=== PATIENT | female | born 1995 | race Caucasian/White ===

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

== ENCOUNTER 2017-02-28 13:26 | Emergency (ER) | payer MEDICAID ==
[2017-02-28 13:59] LABS: BASOPHILS 0.3 % (0-2); EOSINOPHILS 1.4 % (0-7); HEMATOCRIT 34.6 % (36.0-48.0); HEMOGLOBIN 12.5 g/dL (12-16); IMMATURE GRANULOCYTES 0.6 % (0-5); LYMPHOCYTES 21.8 % (15-50); MCH 33.8 pg (26.0-34.0); MCHC 36.1 g/dL (31.0-37.0); MCV 93.5 fL (80.0-100.0); MEAN PLATELET VOLUME 10.2 fL (7.4-10.4); MONOCYTES 8.5 % (2-11); NEUTROPHILS 67.4 % (40-80); PLATELET COUNT 162 10x3/uL (130-400); RDW 12.5 % (11.5-14.5); WBC 10.3 10x3/uL (4.8-10.8)
[2017-06-02 05:30] VITALS: BMI 25.0
== END 2017-02-28 15:25 | disposition home or self-care (01) ==
LOC: D.ER 13:26
PROVIDERS: Emergency Medicine
DX: K92.0 Hematemesis (principal); K21.9 Gastro-esophageal reflux disease without esophagitis; F17.200 Nicotine dependence, unspecified, uncomplicated

== ENCOUNTER 2017-05-01 18:32 | Emergency (ER) | payer MEDICAID ==
[2017-06-02 05:30] VITALS: BMI 25.0
== END 2017-05-01 20:06 | disposition home or self-care (01) ==
LOC: D.ER 18:32
DX: K02.9 Dental caries, unspecified (principal); K08.89 Other specified disorders of teeth and supporting structures

== ENCOUNTER 2017-06-02 05:11 | Inpatient (IN) | payer MEDICAID ==
[~2017-06-02] VITALS: Ht 152.4 cm; Wt 58.1 kg
--- NOTE | ~2017-06-02 | OP ---
PATIENT NAME: JUAN M HERNANDEZ MEDICAL RECORD: [id number] :97 LOCATION:[facility] ADMISSION DATE:06/02/17 SURGEON: ANGELLA AYALA MD DATE OF OPERATION: 06/02/2017 DELIVERY NOTE PREDELIVERY DIAGNOSIS: at term. POSTDELIVERY DIAGNOSIS: Mother delivered at term. PROCEDURE: Induction of labor with vaginal delivery. ATTENDING PHYSICIAN: Angella Ayala MD ANESTHETIC: Continuous lumbar epidural. FINDINGS: Viable male , vertex presentation, Apgars 9 and 9, weight 7 pounds 13 ounces. Midline episiotomy with 3-0 Vicryl and 4-0 chromic repair. Placenta spontaneous and intact. EBL 300 cc. DISPOSITION: Mother and infant recovered in room. TRANSINT:[id number] Voice Confirmation ID: [id number] DOCUMENT ID: [id number] ANGELLA AYALA MD at 0735 CC: [id number] DICTATION DATE: 06/02/17 [address] [employer] LABORER: 06/02/171915 DIS IN 06/04/17 [facility] [address] [place] [address]
[2017-06-02 05:30] VITALS: BP 111/73; Ht 152.4 cm; Wt 58.1 kg
[2017-06-02 06:30] LABS: HEMATOCRIT 34.8 % (36.0-48.0); MCH 30.8 pg (26.0-34.0); MCHC 34.5 g/dL (31.0-37.0); MCV 89.5 fL (80.0-100.0); MEAN PLATELET VOLUME 10.4 fL (7.4-10.4); RBC 3.89 10x6/uL (4.00-5.40); RDW 13.2 % (11.5-14.5); WBC 10.8 10x3/uL (4.8-10.8)
[2017-06-02 06:49] LABS: UDS - AMPHET NEGATIVE QUAL (NEGATIVE); UDS - BARB NEGATIVE QUAL (NEGATIVE); UDS - BENZO NEGATIVE QUAL (NEGATIVE); UDS - COCAINE NEGATIVE QUAL (NEGATIVE); UDS - OPIATE NEGATIVE QUAL (NEGATIVE); UDS - PCP NEGATIVE QUAL (NEGATIVE); UDS - THC NEGATIVE QUAL (NEGATIVE)
[2017-06-02 07:35] LABS: APPEARANCE SLT CLOUDY (CLEAR); BACTERIA MANY /hpf (NONE SEEN); BILIRUBIN NEGATIVE (NEGATIVE); COLOR YELLOW (YELLOW); GLUCOSE NEGATIVE (NEGATIVE); KETONE NEGATIVE (NEGATIVE); NITRITE NEGATIVE (NEGATIVE); PROTEIN NEGATIVE (NEGATIVE); RED CELLS - URINE RARE /hpf (0-5); SPECIFIC GRAVITY 1.015 (1.005-1.020); WHITE CELLS - URINE 25-50 /hpf (0-5)
[2017-06-02 19:30] VITALS: BP 104/60
[2017-06-02 23:20] VITALS: BP 105/70
[2017-06-03 05:47] LABS: HEMATOCRIT 33.1 % (36.0-48.0); HEMOGLOBIN 11.3 g/dL (12-16); MCH 30.3 pg (26.0-34.0); MCHC 34.1 g/dL (31.0-37.0); MCV 88.7 fL (80.0-100.0); MEAN PLATELET VOLUME 10.5 fL (7.4-10.4); RBC 3.73 10x6/uL (4.00-5.40); RDW 13.2 % (11.5-14.5); WBC 14.9 10x3/uL (4.8-10.8)
[2017-06-03 07:29] LABS: RAPID PLASMA REAGIN Non Reactive (Non Reactive)
[2017-06-03 16:57] VITALS: BP 105/69
[2017-06-03 19:10] VITALS: BP 104/64
[2017-06-04 08:30] VITALS: BP 106/62
[2017-06-04] MEDS ORDERED: IBUPROFEN600 MG PO (09:47)
== END 2017-06-04 14:15 | disposition home or self-care (01) | DRG 774 ==
LOC: D.LD 05:11
PROVIDERS: Obstetrics & Gynecology
PROC: 10E0XZZ Delivery of Products of Conception, External Approach (ICD-10-PCS; principal; 2017-06-02)
PROC: 3E033VJ Introduction of Other Hormone into Peripheral Vein, Percutaneous Approach (ICD-10-PCS; 2017-06-02)
PROC: 0W8NXZZ Division of Female Perineum, External Approach (ICD-10-PCS; 2017-06-02)
DX: O98.32 Other infections with a predominantly sexual mode of transmission complicating childbirth (principal); O99.324 Drug use complicating childbirth; A56.8 Sexually transmitted chlamydial infection of other sites; Z3A.39 39 weeks gestation of pregnancy; Z37.0 Single live birth; O99.334 Smoking (tobacco) complicating childbirth; F12.90 Cannabis use, unspecified, uncomplicated

== ENCOUNTER 2019-07-30 06:04 | Inpatient (IN) | payer MEDICAID ==
[~2019-07-30] VITALS: Ht 154.9 cm; Wt 57.6 kg
[~2019-07-30 06:04] MED LIST: IBUPROFEN600 MG PO
[2019-07-30 07:13] LABS: HEMATOCRIT 33.5 % (36.0-48.0); HEMOGLOBIN 10.7 g/dL (12-16); MCH 28.5 pg (26.0-34.0); MCHC 31.9 g/dL (31.0-37.0); MCV 89.3 fL (80.0-100.0); MEAN PLATELET VOLUME 9.6 fL (7.4-10.4); RBC 3.75 10x6/uL (4.00-5.40); RDW 13.7 % (11.5-14.5); WBC 9.9 10x3/uL (4.8-10.8)
[2019-07-30] MEDS ORDERED: PRENAVITE1 TAB PO (07:26)
[2019-07-30] MEDS ORDERED: VALTREX500 MG PO (07:26)
[2019-07-30 07:29] VITALS: BP 117/69; Ht 154.9 cm; Wt 57.6 kg
--- NOTE | 2019-07-30 17:30 | NUR ---
RECEIVED PT FROM LABOR AND DELIVERY TO ROOM 1222. PT TO BED. ORIENTED TO ROOM, BED, AND CALL LIGHT. SR UPX 2. CALL LIGHT IN REACH.
--- NOTE | 2019-07-30 18:15 | NUR ---
PT SITTING UP IN BED. VISITS WITH SO. DENIES NEEDS OR C/O.
[2019-07-30 19:30] VITALS: BP 104/54
--- NOTE | 2019-07-30 19:30 | NUR ---
ASSESSMENT PER FLOW SHEET, VS OBTAINED, SALINE LOCK IN RIGHT FA INTACT WITH NO REDNESS OR EDEMA, FF, ML, U/U, LITE BLEEDING NOTED, PT REPORTS A COUPLE OF PEA SIZE CLOTS EARLIER TODAY, WENT OVER PPH SIGNS AND SYMPTOMS WITH PT, PT VERBALIZES UNDERSTANDING, PT REPORTS FLATUS, NO BM, AND VOIDING WITH NO DIFFICULTY, PT DENIES NEEDS OR PAIN AT THIS TIME, BED IN LOW POSITION, SIDE RAILS X 2, CALL LIGHT IN REACH
--- NOTE | 2019-07-30 20:28 | NUR ---
PT SITTING UP IN BED, FOB HOLDING INFANT, PT DENIES NEEDS OR PAIN AT THIS TIME
--- NOTE | 2019-07-30 21:09 | NUR ---
PT SENIOR ASIC ENGINEER LIGHT, PT AT THIS TIME, PT C/O CRAMPING, ADM [facility] PER MD ORDERS, SEE EMAR, PT DENIES FURTHER NEEDS, BEDDING PROVIDED TO FOB
--- NOTE | 2019-07-30 22:09 | NUR ---
PT WATCHING TV, FOB HOLDING , PT REPORTS "FEELING MUCH BETTER", RATES CRAMPING 1/, DENIES NEEDS AT THIS TIME
--- NOTE | 2019-07-30 23:00 | NUR ---
PT , ASKED PT IF THESE CLOTHES FOUND OVER IN A ROOM ON L&D WERE HER'S, PT STATES "OH YES, I GUESS I FORGOT I LEFT THEM OVER THERE", PT DENIES NEEDS OR PAIN AT THIS TIME, FOB AT BEDSIDE
--- NOTE | 2019-07-31 01:10 | NUR ---
PT AWAKE, HOLDING INFANT, DENIES NEEDS OR PAIN AT THIS TIME, FOB ASLEEP AT BEDSIDE
--- NOTE | 2019-07-31 03:34 | NUR ---
PT RESTING WITH EYES CLOSED, RESP QUIET, NO DISTRESS NOTED, LEFT UNDISTURBED AT THIS TIME, IN OPEN CRIB CART AND FOB ASLEEP AT BEDSIDE
--- NOTE | 2019-07-31 05:29 | NUR ---
PT RESTING WITH EYES CLOSED, RESP QUIET, NO DISTRESS NOTED, LEFT UNDISTURBED AT THIS TIME, IN NSY AT THIS TIME, FOB ASLEEP AT BEDSIDE
[2019-07-31 06:06] LABS: BASOPHILS 0.2 % (0-2); EOSINOPHILS 1.6 % (0-7); HEMATOCRIT 29.4 % (36.0-48.0); HEMOGLOBIN 9.5 g/dL (12-16); IMMATURE GRANULOCYTES 0.4 % (0-5); MCHC 32.3 g/dL (31.0-37.0); MCV 89.6 fL (80.0-100.0); MEAN PLATELET VOLUME 9.8 fL (7.4-10.4); MONOCYTES 10.9 % (2-11); NEUTROPHILS 58.9 % (40-80); PLATELET COUNT 181 10x3/uL (130-400); RBC 3.28 10x6/uL (4.00-5.40); RDW 13.7 % (11.5-14.5); WBC 11.5 10x3/uL (4.8-10.8)
[2019-07-31 06:08] LABS: RAPID PLASMA REAGIN Non Reactive (Non Reactive)
[2019-07-31 07:40] VITALS: BP 94/54
--- NOTE | 2019-07-31 07:40 | NUR ---
TO ROOM FOR VS AND ASSESSMENT. SEE FLOWSHEET. NO C/O PAIN. NO NEEDS AT THIS TIME. INFANT IN ROOM. FOB ASLEEP ON SOFA AT BEDSIDE.
--- NOTE | 2019-07-31 08:05 | NUR ---
DR. PINO IN TO SEE PATIENT.
--- NOTE | 2019-07-31 09:35 | NUR ---
C/O CRAMPING. REQUESTING [facility] FOR PAIN RELIEF.
--- NOTE | 2019-07-31 10:30 | NUR ---
PT UP TO SHOWER.
[2019-07-31] MEDS ORDERED: HYDROCODON-ACE1 EAC7 PO (10:46)
[2019-07-31] MEDS ORDERED: MOTRIN600 MG PO (10:47)
--- NOTE | 2019-07-31 11:30 | NUR ---
AMBULATING IN HALLWAY WITH FOB AND IN CRIB.
--- NOTE | 2019-07-31 14:00 | NUR ---
SITTING UP IN BED. IN ARMS. FOB AT BEDSIDE. NO C/O PAIN OR NEEDS AT THIS TIME.
--- NOTE | 2019-07-31 17:30 | NUR ---
IV D/C'D. CATHETER INTACT. PRESSURE DRESSING APPLIED.
--- NOTE | 2019-07-31 17:40 | NUR ---
REVIEWED DISCHARGE INSTRUCTIONS WITH PATIENT. STATES UNDERSTANDING. FOLLOW-UP APPOINTMENT GIVEN. PATIENT DISHCARGED HOME AMBULATORY TO PRIVATE VEHICLE.
== END 2019-07-31 17:40 | disposition home or self-care (01) | DRG 998 ==
LOC: D.LD 06:04 → D.WS 17:30
PROVIDERS: ADMIT Obstetrics & Gynecology; ATTEND Obstetrics & Gynecology
PROC: 10907ZC Drainage of Amniotic Fluid, Therapeutic from Products of Conception, Via Natural or Artificial Opening (ICD-10-PCS; principal; 2019-07-30)
PROC: 3E033VJ Introduction of Other Hormone into Peripheral Vein, Percutaneous Approach (ICD-10-PCS; 2019-07-30)
PROC: 10E0XZZ Delivery of Products of Conception, External Approach (ICD-10-PCS; 2019-07-30)
DX: O69.81X0 Labor and delivery complicated by cord around neck, without compression, not applicable or unspecified (principal); Z3A.39 39 weeks gestation of pregnancy

== ENCOUNTER 2019-10-19 07:03 | Day surgery (SDC) | payer MEDICAID ==
[2019-10-17 09:45] LABS: BASOPHILS 0.6 % (0-2); EOSINOPHILS 2.9 % (0-7); HEMATOCRIT 41.4 % (36.0-48.0); HEMOGLOBIN 13.9 g/dL (12-16); IMMATURE GRANULOCYTES 0.3 % (0-5); LYMPHOCYTES 42.6 % (15-50); MCH 29.6 pg (26.0-34.0); MCHC 33.6 g/dL (31.0-37.0); MCV 88.1 fL (80.0-100.0); MEAN PLATELET VOLUME 10.1 fL (7.4-10.4); MONOCYTES 9.7 % (2-11); NEUTROPHILS 43.9 % (40-80); PLATELET COUNT 214 10x3/uL (130-400); RDW 16.7 % (11.5-14.5); WBC 7.3 10x3/uL (4.8-10.8)
[~2019-10-19] VITALS: Ht 154.9 cm; Wt 50.8 kg
--- NOTE | ~2019-10-19 | OP ---
PATIENT NAME: JUAN M HERNANDEZ MEDICAL RECORD: [id number] :97 LOCATION:[facility] ADMISSION DATE: SURGEON: REILLY PERRY MD DATE OF OPERATION: 10/19/2019 PREOPERATIVE DIAGNOSES: Multiparity, patient desires permanent sterility. POSTOPERATIVE DIAGNOSES: Multiparity, patient desires permanent sterility. PROCEDURE: Laparoscopic tubal ligation via bipolar cautery. SURGEON: Reilly Perry MD ESTIMATED BLOOD LOSS: Minimal. ANESTHESIA: General endotracheal. INTRAVENOUS FLUIDS: Per anesthesia record. SPECIMENS: None. FINDINGS: Grossly normal-appearing uterus, fallopian tubes and ovaries. ESTIMATED BLOOD LOSS: Minimal. COMPLICATIONS: None apparent. PROCEDURE IN DETAIL: The patient was taken to the operating room where general anesthesia was achieved without any difficulty. The patient was then prepped and draped in normal sterile fashion in the dorsal lithotomy position in the [facility]. The bladder was drained of approximately 100 cc of clear yellow urine and a sponge stick was placed in the vagina for uterine elevation. Following prep and drape, a 5-mm skin incision was made in the inferior aspect of the umbilicus. A 5-mm bladeless trocar was used to enter the intraperitoneal space under direct visualization of the laparoscope. Following entry into the intraperitoneal space, the introducer was removed and the cameras were placed confirming intraperitoneal placement. At this point, a second 5-mm incision was made in the midline approximately 5 cm superior to the pubic symphysis and a second 5-mm bladeless trocar was used to enter the intraperitoneal space under direct visualization of the laparoscope. A survey of the abdomen and pelvis was performed approximately and 5-6 cm portion of the mid fallopian tube was completely desiccated using the bipolar cautery using the Kleppinger device. Following cauterization, good hemostasis was noted. The patient was partially desufflated and all operative sites were found to be hemostatic. The patient was then fully desufflated and the trocars were removed. The skin was repaired with 3-0 Vicryl in an interrupted fashion. Sponge stick was then removed from the vagina. The patient tolerated the procedure well, transported to postanesthesia recovery stable without incident. TRANSINT:[id number] Voice Confirmation ID: [id number] DOCUMENT ID: [id number] OPERATIVE REPORT [id number] JUAN M HERNANDEZ REILLY PERRY MD CC: [id number] DICTATION DATE: 10/24/19 0832 RECORDS MANAGEMENT ASSOCIATE: 10/24/1920 DEP SDC 10/19/19 [place] [id number] [place] [id number]
[~2019-10-19 07:03] MED LIST changes: +HYDROCODON-ACE1 EAC7 PO; +MOTRIN600 MG PO; +PRENAVITE1 TAB PO; +VALTREX500 MG PO
[2019-10-19 07:24] VITALS: Ht 154.9 cm; Wt 50.8 kg
[2019-10-19 08:29] LABS: HCG URINE NEGATIVE (NEGATIVE)
--- NOTE | 2019-10-19 17:15 | NUR ---
1240 VOIDED WITHOUT DIFFICULTY. IV D/C'D WITH CANNULA INTACT. DISCHARGE INSTRUCTIONS GIVEN
== END 2019-10-19 13:00 | disposition home or self-care (01) ==
LOC: D.OPS 07:03 → D.PAN 07:30 → D.OPS 13:00
PROVIDERS: ATTEND Obstetrics & Gynecology
DX: Z64.1 Problems related to multiparity (principal); N97.9 Female infertility, unspecified